=== PATIENT | male | born 1985 | race Caucasian/White ===

== ENCOUNTER 2018-06-13 16:29 | Emergency (ER) | payer OTHER ==
--- NOTE | 2018-06-13 16:57 | PDOC ---
Rapid Medical Evaluation Chief Complaint: Headache Time Seen by Provider: 06/13/18 16:54 Medical Evaluation: 06/13/18 16:55 21 days ago fell onto head has been having headaches and nausea since the head injury. seen by Dr. espinosa recommended to come to the ED for head CT PE: patient alert ox3 A; concussion? P; ct head patient to the ER for further management of care. Discharge Disposition - Diagnosis Concussion Qualifiers: Encounter type: initial encounter Loss of consciousness presence/duration: without LOC Qualified Code(s): S06.0X0A - Concussion without loss of consciousness, initial encounter - Referrals - Patient Instructions - Post Discharge Activity
[2018-06-13 16:58] VITALS: BP 127/84; PULSE 61; TEMP 99.3; BMI 25.1
[2018-06-13] MEDS ORDERED: IBUPROFEN 400 MG TABLET (FP) PO ONE ×2 (18:00→19:47)
--- NOTE | 2018-06-13 18:01 | PDOC ---
History of Present Illness - General Chief Complaint: Headache Stated Complaint: HEAD INJURY Time Seen by Provider: 06/13/18 16:54 History Source: Patient - History of Present Illness Timing/Duration: reports: other (3 weeks) Associated Symptoms: reports: nausea/vomiting. denies: confusion, loss of consciousness, seizures, sleepy, vision changes Past History - Past Medical History Allergies/Adverse Reactions: Allergies Allergy/AdvReac Type Severity Reaction Status Date / Time No Known Allergies Allergy Verified 06/13/18 16:55 Home Medications: Ambulatory Orders Ondansetron HCl [Zofran] 4 mg PO Q8H #20 tablet 06/13/18 CVA: No COPD: No - Immunization History Immunization Up to Date: Yes - Suicide/Smoking/Psychosocial Hx Smoking History: Never smoked Hx Alcohol Use: No Drug/Substance Use Hx: No Substance Use Type: None Review of Systems - Review of Systems ABD/GI: Yes: Nausea. No: Vomiting Neurological: Yes: Headache. No: Dizziness *Physical Exam - Vital Signs Last Vital Signs Temp Pulse Resp BP Pulse Ox 99.3 F 61 16 127/84 100 06/13/18 16:55 06/13/18 16:55 06/13/18 16:55 06/13/18 16:55 06/13/18 16:55 - Physical Exam General Appearance: Yes: Appropriately Dressed. No: Apparent Distress HEENT: positive: Normal Voice Neck: positive: Supple. negative: Tender, Decreased range of motion Respiratory/Chest: negative: Respiratory Distress Integumentary: positive: Dry, Warm Neurologic: positive: gopherman II-XII NML intact, Fully Oriented, Alert, Normal Mood/ Affect, Motor Strength 5/5 Medical Decision Making - Medical Decision Making 06/13/18 18:01 32-year-old male, no significant history, here with headache and nausea s/p head injury ago. Patient states while working out in the gym 3 weeks ago, he lost his balance and fell while doing an exercise that involved a handstand. Patient states he struck his head against the ground. Denies any LOC but states he immediately had some dizziness. After that, patient continued to have headache with nausea and difficulty concentrating. Was also having some neck pain. States he was seen by his PMD and started on flexeril and a "medication called containing caffeine". At some point symptoms resolved, but returned this week. Patient complaining of intermittent, throbbing diffuse headache with nausea and states he has not eaten all day today, which is very unusual for him. No vomiting, visual changes or concentration issues at this time. Seen by Dr. Hernandez of neuro today who referred pt to the ED for CT scan See exam M/l concussion s/p head injury 3 weeks [address] Sent [address] by neuro as sxs persists Well abram w/ no focal neuro deficit -CT -anticipate dc w/ concussion info and continued neuro f/u 06/13/18 20:04 Signed out to LILA Rothman pending CT results 06/13/18 20:05 *DC/Admit/Observation/Transfer Diagnosis at time of Disposition: Concussion Qualifiers: Encounter type: initial encounter Loss of consciousness presence/duration: without LOC Qualified Code(s): S06.0X0A - Concussion without loss of consciousness, initial encounter - Discharge Dispostion Condition at time of disposition: Good - Prescriptions Prescriptions: Ondansetron HCl [Zofran] 4 mg PO Q8H #20 tablet - Referrals - Patient Instructions Printed Discharge Instructions: DI for Concussion Additional Instructions: Your head and neck CT are negative. You may have a concussion, which is a mild brain injury that can cause confusion , memory loss, headache, nausea, vomiting, dizziness, feeling sleepy, cranky, trouble walking or talking, trouble sleeping, mood or behavior changes or visual changes. A concussion can take weeks to months to gradually improve Take motrin for pain and zofran as needed for nausea At this point you need to follow up with a specialist for further evaluation and management - Post Discharge Activity
== END 2018-06-13 21:15 | disposition home or self-care (01) ==
LOC: JERFT 16:29
DX: S06.0X0A Concussion without loss of consciousness, initial encounter (principal); W18.39XA Other fall on same level, initial encounter; Y93.B9 Activity, other involving muscle strengthening exercises; Y92.39 Other specified sports and athletic area as the place of occurrence of the external cause; Y99.8 Other external cause status
CPT/HCPCS: 70450-TC; 72125-TC; 99281-25